=== PATIENT | male | born 1995 | race Caucasian/White ===

== ENCOUNTER 2025-07-08 14:39 | Emergency (ER) | payer BC, MEDICAID ==
[~2025-07-08] VITALS: Ht 177.8 cm; Wt 118.1 kg
[2025-07-08 15:12] LABS: MEAN PLATELET VOLUME 7.8 FL (7.4-10.4); RED CELL DISTRIBUTION WIDTH 13.0 % (11.5-14.5)
[2025-07-08 15:27] LABS: CREATININE 1.00 MG/DL (0.60-1.10); TOTAL CARBON DIOXIDE 26.2 MMOL/L (24-32); eCRCL 115 ML/MIN; eGFR 90 ML/MIN
--- NOTE | 2025-07-08 18:05 | Physician Documentation ---
History of Present Illness Chief Complaint: Vomiting Stated Complaint: MED REACTION Time Seen by MD: 17:55 Mode of Arrival: Ambulatory HPI 29-year-old male presents to the ED with a complaint of nausea vomiting for one day. He was recently prescribed Wegovy one week ago and has had one injection. It is that his initial prescription was for 2.4 mg. Medication reconciliation confirms this. Denies any fevers primary complaint was the can not hold any food down. Addition he takes other medication for ADD and autism Day of Onset: Jul 08, 2025 Medication Reconciliation Allergies: Coded Allergies: No Known Allergies (Unverified , 07/08/25) Scheduled Polyethylene Glycol 3350* (Miralax*), 1 PKT PO DAILY Scheduled PRN ONDANSETRON ODT 4mg tablet (Ondansetron Odt), 1 TAB PO Q6H PRN PRN for nausea/vomiting Physical Exam Vital Signs: Temperature: 97.2, Source: Temporal, Heart Rate: 110, Respiratory Rate: 18, BP: 136/91, Pulse Oximetry: 98, Weight: 118.100 Oxygen Flow Rate: 0 Physical Exam General: Alert, no apparent distress. Respiratory: Lungs clear, no respiratory distress. Cardiovascular: Regular rate and rhythm, no murmurs. Gastrointestinal: Soft, nontender, nondistended. Bowels sounds present. . Neurologic: Oriented x4. Psychiatric: Normal mood and affect. Skin: Normal color, warm and dry. No edema, no ecchymosis. Progress Results/Orders Results/Orders Vital Signs 07/08/25 07/08/25 14:41 17:50 Temp 97.2 Pulse 128 110 Resp 20 18 B/P (MAP) 152/103 136/91 (106) Pulse Ox 98 98 O2 Flow Rate 0 Laboratory Tests Test 07/08/25 15:04 White Blood Count 13.4 H Red Blood Count 6.00 Hemoglobin 17.3 Hematocrit 51.0 Mean Corpuscular Volume 85.1 Mean Corpuscular Hemoglobin 28.9 Mean Corpuscular Hemoglobin Concent 33.9 Red Cell Distribution Width 13.0 Platelet Count 336 Mean Platelet Volume 7.8 Neutrophils (%) (Auto) 80.3 H Lymphocytes (%) (Auto) 12.3 L Monocytes (%) (Auto) 6.7 Eosinophils (%) (Auto) 0.4 Basophils (%) (Auto) 0.3 Neutrophils # (Auto) 10.8 H Lymphocytes # (Auto) 1.6 Monocytes # (Auto) 0.9 Eosinophils # (Auto) 0.0 Basophils # (Auto) 0.0 CBC Comment Sodium Level 137 Potassium Level 4.0 Chloride Level 101 Carbon Dioxide Level 26.2 Anion Gap 10 Blood Urea Nitrogen 15 Creatinine 1.00 Estimated GFR/1.73 m2 90 BUN/Creatinine Ratio 15.0 Glucose Level 113 H Calcium Level 9.5 Total Bilirubin 0.7 Aspartate Amino Transf (AST/SGOT) 32 Alanine Aminotransferase (ALT/SGPT) 86 H Alkaline Phosphatase 49 Total Protein 8.2 Albumin 4.6 Globulin 3.6 Albumin/Globulin Ratio 1.3 Lipase 27 Chemistry Comments Medical Decision Making Findings I suspect that the patient is experiencing severe side effects due to the inital dose given. I think the patient would do better at the starting dose of 0.25 mg per however he is going to follow up with the primary care. In the meantime I prescribed him both MiraLax and Zofran to stave off any constipation and ongoing nausea. He was able to hold down food and water while while in the ED and I sent him home with a single tablet of Zofran Differential Dx:Considerations: Include: AAA, Angina/MA, Aortic dissection, Appendicitis, Bowel obstruction, Cholangitis, Cholelithasis, Constipation, Div erticular disease, Esophageal rupture, Esophagitis, Gastritis/PUD, Gastroenteritis, GI hemorrhage, Hernia, Hepatitis, Inflammatory BD, Ischemic bowel, Pancreatitis, Porphyria, Testicular torsion, Trauma, intraabdominal, Urinary obstruction, Urinary tract infection, Urolithiasis, Other Departure Disposition: 01 HOME / SELF CARE / HOMELESS Impression: Primary Impression: Vomiting Discharge Instructions: Nausea and Vomiting, Adult Referrals: NO PRIMARY CARE PROVIDER (PCP) Prescriptions ONDANSETRON ODT 4mg tablet (ONDANSETRON ODT) 4 Mg Tab.rapdis 1 TAB PO Q6H PRN PRN for nausea/vomiting for 4 Days, #16 TAB 0 Refills Prov: JAMES BOOTH MANAGED CARE DIRECTOR 07/08/25 Polyethylene Glycol 3350* (Miralax*) 1 Packet Packet 1 PKT PO DAILY for constipation, #30 PKT dissolve in water Prov: JAMES BOOTH MANAGED CARE DIRECTOR 07/08/25 Signature Scribe Signature: g Attestation: Scribed for James Booth Np by James Clayton NP . 07/08/25 18:11 JAMES BOOTH NP Jul 08, 2025 18:05
[2025-07-08] MEDS: ondansetron 4mg rapidly disintigrating tab PO ONE ×2 (18:15→19:20)
[2025-07-08] MEDS ORDERED: ONDA-243 PO (18:33)
[2025-07-08] MEDS ORDERED: POLY17PO10 PO (18:33)
[2025-07-08 19:20] VITALS: BP 145/96; PULSE 105; RESP 14; TEMP 97.2; O2SAT 99
== END 2025-07-08 19:06 | disposition home or self-care (01) ==
LOC: ER 14:40
DX: R11.10 Vomiting, unspecified (principal); Z79.899 Other long term (current) drug therapy
CPT/HCPCS: 36415; 80053; 83690; 85025; 99283